=== PATIENT | female | born 1955 ===

== ENCOUNTER 2016-07-08 11:46 | Emergency (ER) | payer MEDICARE, OTHER ==
[2016-07-08 11:59] VITALS: BP 140/80; PULSE 87; RESP 16; TEMP 98; O2SAT 100
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
== END 2016-07-08 12:38 | disposition home or self-care (01) ==
LOC: H.ER 11:46
DX: S09.90XA Unspecified injury of head, initial encounter (principal); V78.6XXA Passenger on bus injured in noncollision transport accident in traffic accident, initial encounter; Y92.410 Unspecified street and highway as the place of occurrence of the external cause

== ENCOUNTER 2017-04-13 07:40 | Emergency (ER) | payer MEDICARE ==
[2017-04-13 07:47] VITALS: BMI 26.5
[2017-04-13 07:48] VITALS: BP 142/71; PULSE 88; RESP 16; TEMP 98.3; O2SAT 97
--- NOTE | 2017-04-13 09:38 | ED PDOC ---
Lower Extremity Pain/Injury Time Seen by Provider: 04/13/17 08:01 Chief Complaint (Nursing): Lower Extremity Problem/Injury Chief Complaint (Provider): left buttock pain History Per: Patient History/Exam Limitations: no limitations Onset/Duration Of Symptoms: Days (4), Gradual Current Symptoms Are (Timing): Still Present Severity: Moderate Additional Complaint(s): 61yo female hx chilhood polio walks with walker in L hand due to RLE weakness and short R leg (has orthotic shoe) presents c/o left buttock pain radiating to back of left knee. Denies skin changes, redness, fever or pain with bowel movement. Hasnt tried any pain medicine at home. Past Medical History Reviewed: Historical Data, Nursing Documentation, Vital Signs Vital Signs: Last Vital Signs Temp 98.3 F 04/13/17 07:47 Pulse 88 04/13/17 07:47 Resp 16 04/13/17 07:47 BP 142/71 04/13/17 07:47 Pulse Ox 97 04/13/17 07:47 - Medical History PMH: Diabetes, HTN, Hyperlipidemia - Surgical History Surgical History: - Family History Family History: States: Unknown Family Hx - Home Medications Home Medications: Ambulatory Orders Medication Instructions Recorded Biotin [Clarke Biotin] 10,000 mcg PO DAILY 03/01/16 Lisinopril [Zestril] 10 mg PO DAILY 03/01/16 MetFORMIN [glucoPHAGE] 10,000 mg PO BID 03/01/16 Ibuprofen [Motrin Tab] 600 mg PO Q6 PRN #15 tab 04/13/17 - Allergies Allergies/Adverse Reactions: Allergies Allergy/AdvReac Type Severity Reaction Status Date / Time No Known Allergies Allergy Verified 07/08/16 11:58 Review of Systems ROS Statement: Except As Marked, All Systems Reviewed And Found Negative Constitutional: Negative for: Fever, Chills Gastrointestinal: Negative for: Nausea, Vomiting, Abdominal Pain Genitourinary Female: Negative for: Dysuria, Frequency, Hematuria, Vaginal Discharge Musculoskeletal: Positive for: Leg Pain. Negative for: Neck Pain, Shoulder Pain , Back Pain Skin: Negative for: Rash, Lesions, Jaundice Neurological: Negative for: Weakness, Numbness Psych: Negative for: Anxiety Physical Exam - Reviewed Nursing Documentation Reviewed: Yes Vital Signs Reviewed: Yes - Physical Exam Appears: Positive for: Well, Non-toxic, No Acute Distress Head Exam: Positive for: ATRAUMATIC, NORMAL INSPECTION, NORMOCEPHALIC Skin: Positive for: Normal Color, Warm, DRY Eye Exam: Positive for: EOMI, Normal appearance, PERRL ENT: Positive for: Normal ENT Inspection Neck: Positive for: Normal, Painless ROM Cardiovascular/Chest: Positive for: Regular Rate, Rhythm Respiratory: Positive for: CNT, Normal Breath Sounds Gastrointestinal/Abdominal: Positive for: Normal Exam, Bowel Sounds, Soft. Negative for: Tenderness, Guarding Back: Positive for: Normal Inspection Extremity: Positive for: Tenderness (L buttock) Neurologic/Psych: Positive for: Alert, Oriented. Negative for: Motor/Sensory Deficits - ECG O2 Sat by Pulse Oximetry: 97 Medical Decision Making Medical Decision Making: improved w analgesics in the ED Ambulating at baseline w cane Rx NSAIDs, avoid muscle relaxants due to baseline gait instability Disposition - Clinical Impression Clinical Impression: Back pain, Sciatica - Patient ED Disposition Is Patient to be Admitted: No Counseled Patient/Family Regarding: Studies Performed, Diagnosis, Need For Followup, Rx Given - Disposition Referrals: [facility] [Outside] Disposition Time: 11:30 Condition: STABLE Additional Instructions: gentle stretching of low back and left buttock/leg recommended. take motrin 600mg every 6 hours with small amount of food as needed for pain return to ER for any worse or new symptoms, pain, fever, weakness or any concern. Prescriptions: Ibuprofen [Motrin Tab] 600 mg PO Q6 PRN #15 tab PRN Reason: Pain, Moderate (4-7) Instructions: Sciatica (ED), Lumbar Radiculopathy (ED), Back Exercises (ED) Forms: [employer] (Serbian)
--- NOTE | 2017-04-13 11:37 | RAD ---
PROCEDURE: Left Hip X-ray Radiographs. HISTORY: L buttock/hip pain; hx polio, R hip sx COMPARISON: None. FINDINGS: BONES: No acute fracture. Possible old healed fracture inferior right pubic ramus. 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 No other fracture. JOINTS: Normal left hip. No articular erosion. No subluxation. SOFT TISSUES: Normal. OTHER FINDINGS: None. IMPRESSION: Developmental abnormality of right hip. Possible old healed fracture right inferior pubic ramus. No acute fracture.
== END 2017-04-13 13:02 | disposition home or self-care (01) ==
LOC: H.ER 07:40
DX: M54.32 Sciatica, left side (principal); M54.16 Radiculopathy, lumbar region; E11.9 Type 2 diabetes mellitus without complications; E78.5 Hyperlipidemia, unspecified; I10 Essential (primary) hypertension; Z79.84 Long term (current) use of oral hypoglycemic drugs; A80.9 Acute poliomyelitis, unspecified